=== PATIENT | female | born 1985 | race Caucasian/White ===

== ENCOUNTER → 2019-04-30 | Outpatient (CLI) | payer OTHER ==
[~2019-04-30] MED LIST: B12100 MC1 PO; BIRTH CONTROL1 EAC1 PO; PERCOCET 325 MG1 TA5 PO
[2019-04-30 08:38] LABS: HEMATOCRIT 42.1 % (37.0-47.0); HEMOGLOBIN 13.7 g/dl (12.0-16.0); MEAN CELL VOLUME 99.8 fl (81.0-99.0); MEAN CORPUSCULAR HGB 32.5 pg (27.0-31.0); MEAN CORPUSCULAR HGB CONC 32.5 g/dl (33.0-37.0); MEAN PLATELET VOLUME 10.1 fl (9.6-12.3); RED BLOOD COUNT 4.22 10*6/uL (4.10-5.10); RED CELL DISTRI WIDTH 12.2 % (0-14.5); WHITE BLOOD COUNT 4.6 10*3/uL (4.8-10.8)
[2019-04-30 09:10] LABS: ALBUMIN 3.5 gm/dl (3.1-4.5); ALKALINE PHOSPHATASE 67 U/L (45-117); BUN 17 mg/dl (7-24); CHLORIDE 109 mmol/L (98-107); CHOLESTEROL 198 mg/dL (<200); CREATININE 0.73 mg/dL (0.55-1.02); HDL CHOLESTEROL 54 mg/dl (40-60); LDL CHOLESTEROL 116 mg/dL (9-159); POTASSIUM 3.9 mmol/L (3.5-5.1); SGOT/AST 6 IU/L (3-35); SGPT/ALT 18 U/L (12-78); SODIUM 141 mmol/L (136-145); TOTAL PROTEIN 6.9 gm/dL (6.4-8.2); TRIGLYCERIDES 141 mg/dl (<150); VLDL CHOLESTEROL 28 mg/dL (6-40)
== END | disposition home or self-care (01) ==
LOC: LAB 08:15
PROVIDERS: Physician Assistant
DX: R53.83 Other fatigue (principal)